=== PATIENT | male | born 1970 | race American Indian/Alaskan Native ===

== ENCOUNTER 2019-05-16 23:54 | Emergency (ER) | payer OTHER ==
[~2019-05-16] VITALS: Ht 177.8 cm; Wt 86.4 kg
[2019-05-17 05:30] VITALS: BP 129/80
[2019-05-17] MEDS ORDERED: IBUPROFEN 800 MG TABLET PO ONE (05:30)
[2019-05-17] MEDS ORDERED: CAPSAICIN 0.025% 60 GM CREAM TP ONE (05:30)
[2019-05-17] MEDS ORDERED: ACYCLOVIR 200 MG CAPSULE PO ONE (05:30)
== END 2019-05-17 05:55 | disposition home or self-care (01) ==
LOC: EMS 23:59
DX: B02.9 Zoster without complications (principal); F17.210 Nicotine dependence, cigarettes, uncomplicated

== ENCOUNTER 2022-01-16 18:49 | Emergency (ER) | payer OTHER ==
[~2022-01-16] VITALS: Ht 182.9 cm; Wt 86.4 kg
[2022-01-16 20:18] LABS: COVID AG,FIA SOURCE NASOPHARYNGEAL
[2022-01-16 20:38] LABS: INFLUENZA TYPE A NEGATIVE FOR TYPE A (NEGATIVE); INFLUENZA TYPE B NEGATIVE FOR TYPE B (NEGATIVE)
[2022-01-16] MEDS ORDERED: DOXY-354 PO (21:07)
[2022-01-16] MEDS ORDERED: ALBU8HFA IH (21:07)
[2022-01-16] MEDS ORDERED: BENZ-70 PO (21:07)
[2022-01-16 21:30] VITALS: BP 127/69
== END 2022-01-16 21:49 | disposition home or self-care (01) ==
LOC: EMS 18:49
DX: J18.9 Pneumonia, unspecified organism (principal); F17.210 Nicotine dependence, cigarettes, uncomplicated; Z20.822 Contact with and (suspected) exposure to COVID-19
CPT/HCPCS: 71045; 87804; 99284